=== PATIENT | male | born 1955 | race Caucasian/White ===

== ENCOUNTER 2023-08-12 02:45 | Emergency (ER) | payer MEDICARE, OTHER ==
[~2023-08-12] VITALS: Ht 180.3 cm; Wt 84.1 kg
[~2023-08-12 02:45] MED LIST: CIALIS20 MG PO; FLUOXETINE20 M1 PO; NORCO 325 MG-51 TAB PO; PRILOSEC 20MG20 MG PO; SIMVASTATIN20 MG PO
[2023-08-12 03:48] VITALS: BP 147/86; PULSE 80; TEMP 97.9
== END 2023-08-12 03:54 | disposition home or self-care (01) ==
LOC: COL.ER 02:45
DX: R33.9 Retention of urine, unspecified (principal); R10.30 Lower abdominal pain, unspecified